=== PATIENT | female | born 1960 | race Caucasian/White ===

== ENCOUNTER 2017-01-17 10:09 | Observation (INO) ==
[2017-01-17 10:50] LABS: Basophils % 0.5 %; Eosinophils # 0.1 K/mcL (0.0-0.6); Hematocrit 39.1 % (35.3-44.9); Hemoglobin 13.1 g/dL (11.5-15.4); Immature Granulocytes % 0.2 % (0-4); Lymphocytes # 1.6 K/mcL (0.6-4.6); Lymphocytes % 24.2 %; Mean Corpuscular HGB Conc 33.5 g/dL (31.6-35.5); Mean Corpuscular Hemoglobin 29.2 pg (28.0-33.3); Mean Corpuscular Volume 87.1 fL (83.0-100.0); Mean Platelet Volume 9.8 fL (9.4-12.4); Monocytes # 0.6 K/mcL (0.0-1.3); Monocytes % 9.1 %; Neutrophils # 4.1 K/mcL (1.6-8.9); Platelet Count 374 K/mcL (140-400); Red Blood Count 4.49 M/mcL (3.82-4.97)
[2017-01-17 10:54] LABS: Prothrombin Time 10.5 Seconds (9.4-12.1)
[2017-01-17 11:02] LABS: BUN/Creatinine Ratio 15 (6-26); Blood Urea Nitrogen 13 mg/dL (7-20); Calcium 9.5 mg/dL (8.6-10.8); Carbon Dioxide 25 mEq/L (19-29); Chloride 101 mEq/L (98-109); Glucose 119 mg/dL (70-99); Osmolality,Calculated 279 (280-300); Potassium 4.3 mEq/L (3.5-4.5); Sodium 134 mEq/L (136-145); eGFR For African Americans > 60 (> 60); eGFR For Non-African Americans > 60 (> 60)
--- NOTE | 2017-01-17 11:17 | Emergency Department Note ---
Disposition Clinical Impression: Chest pain Disposition: Admitted As Inpatient Condition: Good Time of Disposition: 12:44 Chest Pain HPI - General Chief Complaint: ED Chest Pain Stated Complaint: CP Time Seen by Provider: 01/17/17 10:17 Source: patient Mode of arrival: ambulatory Limitations: no limitations Vital Signs Reviewed: Yes Nursing Notes Reviewed: Yes - History of Present Illness HPI Narrative: Patient presenting ED with the chief complaint chest pain. Patient reports that onset was earlier today. Retrosternal but radiating to bilateral shoulders. No nausea, vomiting, dyspnea. No previous history of coronary disease, had a stress test about 15 years ago. States that she thought it may have been reflux. At first, but felt different. Has a history of hypertension and is a former smoker. Pain is almost self resolved at this time Severity scale (1-10): 5 - Related Data Home Medications Medication Instructions Recorded Confirmed ALPRAZolam [Xanax 0.5 MG Tablet] 0.5 mg PO TID PRN 01/17/17 01/17/17 Omeprazole [PriLOSEC] 20 mg PO BIDAC 01/17/17 01/17/17 Propranolol LA (24 HR) [Inderal LA] 60 mg PO DAILY 01/17/17 01/17/17 Allergies Allergy/AdvReac Type Severity Reaction Status Date / Time No Known Allergies Allergy Verified 01/17/17 10:12 All systems ED: reviewed and negative except as stated. 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 history - Social History Smoking Status: Never smoker Alcohol use: Reports: none Drug use: Reports: none Physical Exam - General Limitations: no limitations General appearance: alert, in no apparent distress - Head Head exam: atraumatic, normocephalic, normal inspection - Eye Eye exam: Present: normal appearance, PERRL, EOMI - Chest Chest inspection: Present: normal inspection, symmetric chest wall rise - Respiratory Respiratory exam: Present: normal lung sounds bilaterally - Cardiovascular Cardiovascular exam: Present: regular rate, normal rhythm, normal heart sounds - Abdominal Exam Abdominal exam: Present: soft, Non-Tender. Absent: tenderness, distention, guarding, rebound, rigidity - Extremities Exam Extremities exam: Present: normal inspection, full ROM. Absent: tenderness, pedal edema - Neurological Exam Neurological exam: Present: alert, oriented X3 - Psychiatric Psychiatric exam: Present: normal affect, normal mood - Skin Skin exam: Present: warm, dry, intact, normal color Course Course Narrative: Patient presenting with chest pain. Could be cardiac with bilateral radiation. No workup within the last 15 years. We will likely admit. Vital Signs Temperature 98.0 F 01/17/17 10:10 Pulse Rate 67 01/17/17 10:10 Respiratory Rate 16 01/17/17 10:10 Blood Pressure 158/110 01/17/17 10:10 O2 Sat by Pulse Oximetry 94 01/17/17 10:10 Temperature 98.0 F 01/17/17 10:10 Pulse Rate 57 01/17/17 12:02 Respiratory Rate 16 01/17/17 12:02 Blood Pressure 126/98 01/17/17 12:02 O2 Sat by Pulse Oximetry 100 01/17/17 12:02 Oxygen Delivery Oxygen Delivery Room Air Chest Pain - Medical Records Medical records reviewed: Yes I reviewed the patient's medical records. - Lab Data Lab results reviewed: Yes I reviewed the patient's lab results. Result diagrams: 01/17/17 10:40 01/17/17 10:40 Lab Results 01/17/17 01/17/17 01/17/17 Range/Units 10:40 10:40 10:40 WBC 6.4 (4.3-11.1) K/mcL RBC 4.49 (3.82-4.97) M/mcL Hgb 13.1 (11.5-15.4) g/dL Hct 39.1 (35.3-44.9) % MCV 87.1 (83.0-100.0) fL MCH 29.2 (28.0-33.3) pg MCHC 33.5 (31.6-35.5) g/dL RDW 13.0 (11.5-14.5) % Plt Count 374 (140-400) K/mcL MPV 9.8 (9.4-12.4) fL Immature Gran % 0.2 (0-4) % Seg Neutrophils % 64.0 % Lymphocytes % 24.2 % Monocytes % 9.1 % Eosinophils % 2.0 % Basophils % 0.5 % Neutrophils # 4.1 (1.6-8.9) K/mcL Lymphocytes # 1.6 (0.6-4.6) K/mcL Monocytes # 0.6 (0.0-1.3) K/mcL Eosinophils # 0.1 (0.0-0.6) K/mcL Basophils # 0.0 (0.0-0.2) K/mcL PT 10.5 (9.4-12.1) Seconds INR 1.0 APTT 29.0 (26.0-36.0) Seconds D-Dimer 235 (0-500) ng/mLFEU Sodium 134 L (136-145) mEq/L Potassium 4.3 (3.5-4.5) mEq/L Chloride 101 (98-109) mEq/L Carbon Dioxide 25 (19-29) mEq/L BUN 13 (7-20) mg/dL Creatinine 0.87 (0.57-1.11) mg/dL Est GFR ( Amer) > 60 (> 60) Est GFR (Non-Af Amer) > 60 (> 60) BUN/Creatinine Ratio 15 (6-26) Glucose 119 H (70-99) mg/dL Calculated Osmolality 279 L (280-300) Calcium 9.5 (8.6-10.8) mg/dL Troponin I (0-0.03) ng/mL 01/17/17 Range/Units 10:40 WBC (4.3-11.1) K/mcL RBC (3.82-4.97) M/mcL Hgb (11.5-15.4) g/dL Hct (35.3-44.9) % MCV (83.0-100.0) fL MCH (28.0-33.3) pg MCHC (31.6-35.5) g/dL RDW (11.5-14.5) % Plt Count (140-400) K/mcL MPV (9.4-12.4) fL Immature Gran % (0-4) % Seg Neutrophils % % Lymphocytes % % Monocytes % % Eosinophils % % Basophils % % Neutrophils # (1.6-8.9) K/mcL Lymphocytes # (0.6-4.6) K/mcL Monocytes # (0.0-1.3) K/mcL Eosinophils # (0.0-0.6) K/mcL Basophils # (0.0-0.2) K/mcL PT (9.4-12.1) Seconds INR APTT (26.0-36.0) Seconds D-Dimer (0-500) ng/mLFEU Sodium (136-145) mEq/L Potassium (3.5-4.5) mEq/L Chloride (98-109) mEq/L Carbon Dioxide (19-29) mEq/L BUN (7-20) mg/dL Creatinine (0.57-1.11) mg/dL Est GFR ( Amer) (> 60) Est GFR (Non-Af Amer) (> 60) BUN/Creatinine Ratio (6-26) Glucose (70-99) mg/dL Calculated Osmolality (280-300) Calcium (8.6-10.8) mg/dL Troponin I 0.00 (0-0.03) ng/mL - Radiology Data Radiology results reviewed: Yes I reviewed the patient's radiology results. - EKG Data EKG attestation: Yes I reviewed and interpreted this EKG. EKG results narrative: Sinus rhythm, rate 63, AZ interval 149, QRS 80, QTC 377, normal axis, no acute ischemic changes. Heart Score - Score History: Moderately Suspicious EKG: Non Specific repolarisation Disturbance Age: 45-65 Risk Factors: 1-2 risk factors Troponin: Less than normal limit HEART Score Total: 4
[2017-01-17] MEDS ORDERED: Aspirin 325 MG TABLET PO ONE (11:28)
--- NOTE | 2017-01-17 11:46 | Emergency Department Note ---
START Narrative - START START: I examined this patient and my medical decision-making was reviewed with the Resident Physician. I agree with the documented findings, disposition and treatment plan as described except to the extent set forth below. 56 yo F here for chest pain +sig fam hx of CAD ekg ok vss trop neg chest pain free at the moment will admit for observation
[2017-01-17] MEDS ORDERED: Acetaminophen 325 MG TABLET PO PRN (13:53)
[2017-01-17] MEDS ORDERED: Naloxone 0.4 MG/ML INJ IVP PRN (13:53)
[2017-01-17] MEDS ORDERED: ALPRAZolam 0.5 MG TABLET PO PRN (13:56)
[2017-01-17] MEDS ORDERED: Aspirin Enteric Coated 81 MG Tablet PO SCH (14:00)
--- NOTE | 2017-01-17 14:08 | Internal Med History&Physical ---
Date of Encounter: 01/17/17 Time of Encounter: 14:00 Assessment and Plan (1) Chest pain Current visit: Yes Status: Acute 56/F Admitted with anginal pain: Precordial region, radiating to the left arm, relieved by nitroglycerin. At the time of examination patient is chest pain-free Plan: -Admitted as an observation. Chest pain rule out ACS protocol. -Aspirin 81/Lipitor 40/metoprolol 12.5 mg. -Cycle troponin -Echocardiogram. -If echocardiogram is negative and 3 troponins are negative then please consider pharmacological stress test -Pharmacological stress test. -If stress test is positive then consult cardiology for further evaluation. -The chest pain continues then consider nitroglycerin -I have seen this patient in the emergency room at bed 21 and patient's family at the bedside. - I have discussed the plan with the patient's family member and at the end of the conversation they do not have any questions, concerns, update or recommendations. Qualifiers: Chest pain type: unspecified Qualified Code(s): R07.9 - Chest pain, unspecified (2) DVT prophylaxis Current visit: Yes Status: Acute SCD Medical decision making: This patient has a [id number] risk of worsening in spite of being on appropriate medication due to the underlying comorbid conditions Internal Medicine - H&P: HPI Chief complaint: Chest pain Admitted From: Emergency Dept Plans for Post Hospital Care: Home History of present illness: PCP: Dr. Fausto Campa. Background medical history: Anxiety, GERD, patient's home medication is propranolol not sure why she is taking it, patient is not aware why she was prescribed propranolol History of present illness: 56-year-old female was getting persistently chest discomfort yesterday night and she thought that she is going to have a little bit discomfort secondary to acid peptic disease. This morning she went to work and around 9:30 AM she had a left-sided precordial chest pain. Patient works at [employer]. 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 EKG was done and in view of her chest pain patient was referred to this hospital for further evaluation. Patient was seen in the emergency room. In the emergency room she was still complaining of occasional chest pain which was radiating to the left arm associated with occasional pinpricking sensation and pressure like symptoms. The pain gets worse with the activity and relieved by rest and nitroglycerin. Patient denies abdominal pain, shortness of breath, nausea, vomiting, dizziness and diarrhea. Workup in the emergency room: Patient was evaluated in the emergency room. Basic labs were drawn. Troponin was negative. EKG was suggestive of a nonspecific ST-T changes. Reason for admission: Chest pain to rule out acute coronary syndrome. Heart score: 4 Family history: Strong family history of coronary artery disease on her mother' s side. Past Med Surg Social Fam HX - Past Medical History Medical history: thyroid disease Psychiatric history: anxiety - Past Surgical History Surgical History: other (Rest biopsy and right oophorectomy) - Social History Smoking Status: Never smoker Smokeless Tobacco Status: No Alcohol use: none Drug use: none Internal Medicine - H&P: Meds ALPRAZolam [Xanax 0.5 MG Tablet] 0.5 mg PO TID PRN 01/17/17 [History] Omeprazole [PriLOSEC] 20 mg PO BIDAC 01/17/17 [History] Propranolol LA (24 HR) [Inderal LA] 60 mg PO DAILY 01/17/17 [History] 3 Allergy/AdvReac Type Severity Reaction Status Date / Time No Known Allergies Allergy Verified 01/17/17 10:12 All Systems PM: A 10-system review of systems was performed and is negative for pertinent findings except as documented above in the HPI. - Constitutional Constitutional: no chills, no fever(s), no night sweats - EENT Eyes: no change in vision, no discharge, no pain, no photophobia Ears: no ear discharge, no ear pain, no tinnitus Nose, mouth and throat: no dysphagia, no nasal discharge, no neck pain, no sore throat - Cardiovascular Cardiovascular ROS IM: chest pain, diaphoresis, palpitations, no lightheadedness , no syncope - Respiratory Respiratory: no cough, no dyspnea, no wheezing, no excessive phlegm production - Gastrointestinal Gastrointestinal: no abdominal pain, no diarrhea, no hematemesis, no hematochezia, no melena, no nausea, no vomiting - Genitourinary Genitourinary: no change in urinary stream, no dysuria, no flank pain, no hematuria - Musculoskeletal Musculoskeletal ROS IM: no numbness, no tingling - Integumentary Integumentary IM: no rash, no unusual bruising - Neurological Neurological ROS: no confusion, no convulsions, no focal weakness, no numbness, no tingling, no tremor(s) - Hematologic/Lymphatic Hematologic/Lymphatic: no easy bruising - Constitutional Vitals: Temp Pulse Resp BP Pulse Ox 98.0 F 57 16 126/98 100 01/17/17 10:10 01/17/17 12:02 01/17/17 12:02 01/17/17 12:02 01/17/17 12:02 General appearance: Present: A&O X 3, pleasant, no acute distress, answers questions appropriately Internal Med - H&P Results - Labs CBC & Chem 7: 01/17/17 10:40 01/17/17 10:40
--- NOTE | 2017-01-17 19:40 | Electrocardiograph Report ---
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
[2017-01-17 20:58] LABS: Bilirubin,Urine Negative (Negative); Blood,Urine Negative (Negative); Clarity,Urine Clear (Clear); Color,Urine Yellow (Yellow); Glucose,Urine (UA) Normal (Normal); Ketones,Urine Negative (Negative); Leukocyte Esterase,Urine Negative (Negative); Nitrite,Urine Negative (Negative); Protein,Urine Negative (Neg-Trace); Specific Gravity,Urine 1.013 (1.010-1.025); Urobilinogen,Urine Normal (Normal)
[2017-01-18 02:22] LABS: INR 1.1; Prothrombin Time 11.6 Seconds (9.4-12.1)
[2017-01-18 02:25] LABS: Activated Partial Thrombo Time 28.6 Seconds (26.0-36.0)
[2017-01-18 02:31] LABS: Basophils % 0.5 %; Eosinophils # 0.1 K/mcL (0.0-0.6); Eosinophils % 2.4 %; Hematocrit 36.9 % (35.3-44.9); Hemoglobin 12.4 g/dL (11.5-15.4); Immature Granulocytes % 0.2 % (0-4); Lymphocytes # 2.4 K/mcL (0.6-4.6); Lymphocytes % 40.5 %; Mean Corpuscular HGB Conc 33.6 g/dL (31.6-35.5); Mean Corpuscular Hemoglobin 29.2 pg (28.0-33.3); Mean Corpuscular Volume 86.8 fL (83.0-100.0); Mean Platelet Volume 9.9 fL (9.4-12.4); Monocytes # 0.6 K/mcL (0.0-1.3); Monocytes % 9.9 %; Neutrophils # 2.7 K/mcL (1.6-8.9); Platelet Count 333 K/mcL (140-400); Red Blood Count 4.25 M/mcL (3.82-4.97); Red Cell Distribution Width 13.1 % (11.5-14.5); Segmented Neutrophils % 46.5 %
[2017-01-18 02:32] LABS: Alanine Aminotransferase 14 Units/L (0-55); Albumin 3.4 g/dL (3.5-5.0); Alkaline Phosphatase 71 Units/L (38-126); Aspartate Amino Transferase 23 Units/L (5-34); BUN/Creatinine Ratio 13 (6-26); Bilirubin,Total 0.6 mg/dL (0.2-1.2); Blood Urea Nitrogen 11 mg/dL (7-20); Carbon Dioxide 26 mEq/L (19-29); Chloride 103 mEq/L (98-109); Chol/HDL Ratio 3.8 (0-4.9); Cholesterol 192 mg/dL (< 200); Globulin 3.3 g/dL (2.4-3.5); Glucose 92 mg/dL (70-99); HDL Cholesterol 51 mg/dL (40-59); LDL Cholesterol,Calculated 121 mg/dL (0-99); Osmolality,Calculated 283 (280-300); Phosphorous 3.4 mg/dL (2.3-4.7); Potassium 4.1 mEq/L (3.5-4.5); Sodium 137 mEq/L (136-145); Total Protein 6.7 g/dL (6.0-8.3); Triglycerides 100 mg/dL (< 150); eGFR For African Americans > 60 (> 60); eGFR For Non-African Americans > 60 (> 60)
[2017-01-18] MEDS ORDERED: Regadenoson 0.4 MG/5 ML SYRINGE IVP ONE (09:27)
[2017-01-18] MEDS ORDERED: Sucralfate 1 GM TABLET PO SCH (12:30)
--- NOTE | 2017-01-18 12:42 | Discharge Summary ---
Date of Encounter: 01/18/17 Time of Encounter: 09:10 - Discharge Diagnosis (1) Chest pain Priority: Primary Status: Acute Comments: Pt reports 2 year history of diffuse chest burning. She reports that it has been increasing recently and she had an EKG at work the night prior to admission and it was "abnormal". She was seen at PCP and a referral was made to GI. Pt denies SOB, nausea, vomiting, and reports positive correlation between food and chest burning. Denies diaphoresis. Pt reports that she frequently clears her throat and coughs. Pain sometimes radiates to back and between her shoulder blades. she was given Rx for Omeprazole however, she did not take it regularly and has not taken it for several months. Epigastric area is tender to palpation. Echo done today shows LVEF 60%, mild LVDD, mild AR. Stress test was negative for ischemia or infarct, with a gated EF of greater than 70%. Chest xray negative. Troponins negative x 3. Lipid panel WNL. Vitals are stable. This is most likely GERD. She will need to follow up with GI, as well as PCP for continued work up. Carafate 1000mg po qid Omeprazole 20mg po bid. Qualifiers: Chest pain type: unspecified Qualified Code(s): R07.9 - Chest pain, unspecified (2) GERD (gastroesophageal reflux disease) Priority: Secondary Status: Acute Comments: Plan as above. Qualifiers: Esophagitis presence: esophagitis presence not specified Qualified Code(s) : K21.9 - Gastro-esophageal reflux disease without esophagitis (3) DVT prophylaxis Priority: Secondary Status: Acute Comments: Pt is ambulatory. SCD ordered. - Discharge Medications Prescriptions: Omeprazole [PriLOSEC] 20 mg PO BIDAC #60 capsule. Sucralfate [Carafate] 1 gm PO QIDAC #120 tablet Home Medications: ALPRAZolam [Xanax 0.5 MG Tablet] 0.5 mg PO TID PRN 01/17/17 [History] Propranolol LA (24 HR) [Inderal LA] 60 mg PO DAILY 01/17/17 [History] Omeprazole [PriLOSEC] 20 mg PO BIDAC #60 capsule. 01/18/17 [Rx] Sucralfate [Carafate] 1 gm PO QIDAC #120 tablet 01/18/17 [Rx] Allergies/Adverse Reactions: 3 Allergy/AdvReac Type Severity Reaction Status Date / Time No Known Allergies Allergy Verified 01/17/17 10:12 Procedures/tests Complete & Pending: Procedures Performed prior 72 hours Category Date Time Status NM ravindra perf SPECT multi [NM] Routine Exams 01/18/17 08:32 Taken EV echocardiogram Routine Y 01/17/17 13:56 Completed SP pharm nuclear stress Routine Y 01/18/17 08:31 Ordered Date of admission: 01/17/17 12:24 Primary care physician: Fausto Campa Jr, MD Discharging clinician: Tracy Mcduffie Anticipated date of discharge: 01/18/17 - Patient Status Disposition: Home, Self-Care Condition: Good Functional capacity at discharge: independent ambulation Overall status at discharge: patient is progressing back to baseline - Discharge Instructions Follow Up With: Fausto Campa Jr, MD [Primary Care Provider] - Maximiliano Geronimo MD [Partnered Physician] - (We have web requested you an appointment with GI. They should be calling in the next few days with a follow up appointment. ) Additional Instructions: Please follow up with PCP in the next 7-10 days. You will receive a phone call from GI to schedule an appointment. Take your medications as directed. Return to the ER as needed for any other problems or concerns. Try to eat smaller, more frequent meals and avoid fatty, spicy, or fried foods. - Diet and Activity Activity: increase activity as tolerated Diet: advance to your usual diet, low fat, low cholesterol Interval History: Please see assessment and plan for hospital course. Hospital course: Ms. Bonds is a 56 year old female - Time Spent with Patient Total time spent providing and/or coordinating discharge services: Less than 30 minutes - Constitutional Vitals: Temp Pulse Resp BP Pulse Ox 97.9 F 77 20 119/82 99 01/18/17 10:21 01/18/17 10:21 01/18/17 10:21 01/18/17 10:21 01/18/17 10:21 General appearance: Present: cooperative, A&O X 3, pleasant, no acute distress, answers questions appropriately - Head Head exam: Present: atraumatic, normal inspection, normocephalic - Eye Eye exam: Present: normal appearance, conjuntiva pink, sclera anicteric - Neck Neck exam general surgery: Present: normal inspection, supple, trachea midline. Absent: lymphadenopathy - Respiratory Respiratory exam: Present: CTAB. Absent: accessory muscle use, decreased breath sounds, rales, respiratory distress, rhonchi, wheezes - Cardiovascular Cardiovascular exam: Present: RRR, +S1, +S2. Absent: diastolic murmur, gallop, rubs, systolic murmur - GI/Abdominal GI/Abdominal exam: Present: normal bowel sounds, soft, tenderness. Absent: distended, hepatomegaly - Extremities Exam Extremities exam: Present: normal capillary refill, normal inspection, warm, radial pulses palpable and symmetrical. Absent: calf tenderness, cyanotic, pedal edema, tenderness - Neurological Exam Neurological exam: Present: alert, oriented X3, no focal deficits. Absent: facial droop, speech deficit - Skin Skin exam: Present: dry, intact, normal color, warm. Absent: rash
[2017-01-18 15:10] VITALS: BP 105/76
== END 2017-01-18 18:11 | disposition home or self-care (01) ==
LOC: EMEROO 10:09 → 3BNU 10:09
PROVIDERS: ADMIT Internal Medicine; ATTEND Registered Nurse